=== PATIENT | male | born 1950 | race Caucasian/White ===

== ENCOUNTER 2019-07-04 07:11 | Inpatient (IN) ==
--- NOTE | 2019-06-26 12:12 | Anesthesiology Consultation ---
Date of Service June 26, 2019 Assessment & Plan (1) Encounter for pre-operative examination: Chart Review Chart Review: Pending: Refer to Additional Notes / Consult section (awaiting PAT testing) History Surgery Operation Date: 07/04/19 11:50 Proposed Procedures p Left Shoulder Tournier Resurfacing versus Hemiarthroplasty versus - Lewis Dye DO s Total Shoulder Arthroplasty - Lewis Dye DO Height/Weight Height: 5 ft 9 in Weight: 90.9 kg Allergies Allergy/AdvReac Type Severity Reaction Status Date / Time bee venom protein (honey bee) Allergy Severe yellow Verified 06/21/19 16:54 jackets-->hives tetracycline Allergy Severe severe Verified 06/21/19 16:54 vomiting & passed out Medications Home Medications Medication Instructions Recorded Confirmed Last Taken cholecalciferol (vitamin D3) 1,000 unit PO HS 06/21/19 06/21/19 Unknown [Vitamin D3] dutasteride [Avodart] 0.5 mg PO HS 06/21/19 06/21/19 Unknown fosinopril 10 mg PO HS 06/21/19 06/21/19 Unknown metformin 1,000 mg PO BID 06/21/19 06/21/19 Unknown tamsulosin [Flomax] 0.4 mg PO HS 06/21/19 06/21/19 Unknown Past Medical History Medical History BPH (benign prostatic hyperplasia) Chronic back pain uses back brace PRN Depression occasional - no medications - well controlled Diabetes mellitus, type 2 niddm GERD (gastroesophageal reflux disease) diet controlled Hypertension Hyperthyroidism no medications -- half thyroidectomy Osteoarthritis Sleep apnea cpap (noncompliant) Spinal stenosis Exercise / Class Metabolic Activity II 4-5 Yardwork/Stairs/Walk up hill Past Family History Family History Father FHx: lung cancer Brother FHx: lung cancer Past Surgical History Surgical History Fusion of spine L3-L4 History of appendectomy History of cataract surgery bilateral History of colonoscopy History of esophagogastroduodenoscopy (EGD) History of herniorrhaphy umbilical History of thyroidectomy, subtotal half r/t hyperthyroid and multiple nodules S/P right knee arthroscopy Status post uvulopalatopharyngoplasty Social History Smoking Status: Never smoker Do You Dip or Chew Tobacco: No Hx Alcohol Use: No Hx Substance Use: No substance use type: does not use Physical Exam Vital Signs Last Vital Signs Temp 97.8 F 06/26/19 12:02 Pulse 72 06/26/19 12:02 Resp 16 06/26/19 12:02 BP 123/80 06/26/19 12:02 Pulse Ox 98 06/26/19 12:02 ENMT Mouth: + dental restorations Thyromental Distance: > or= 3.5 Finger Breadths Mallampati Class: II Neck normal visual inspection Respiratory normal respiratory effort Auscultation: lungs clear to auscultation bilaterally Cardiovascular Rate/Rhythm: regular rate and regular rhythm
--- NOTE | 2019-06-26 12:58 | XRay Report ---
TWO VIEW CHEST CLINICAL HISTORY: Preoperative examination. FINDINGS: PA and lateral chest radiographs are obtained. No prior studies are available for compariso n at the time of dictation. The cardiomediastinal silhouette is unremarkable. The lungs and pleura l spaces are clear. There is no pneumothorax. The bony thorax appears intact. IMPRESSION: No active disease in the chest. Electronically signed by: Obi Enciso M.D. 06/26/2019 12:56 PM
[2019-06-26 13:37] LABS: Basophils # (auto) 0.02 K/uL (0-0.2); Basophils % (auto) 0.2 %; Eosinophils # (auto) 0.38 K/uL (0-0.5); Eosinophils % (auto) 4.1 %; Hematocrit (blood only) 44.2 % (42-52); Hemoglobin 15.1 g/dL (14.0-18.0); Immature Granulocytes # (auto) 0.02 K/uL (0.00-0.02); Immature Granulocytes % (auto) 0.2 %; Lymphocytes # (auto) 1.61 K/uL (1.2-3.4); Lymphocytes % (auto) 17.3 %; Mean Corpuscular Hemoglobin 32.3 pg (25-34); Mean Corpuscular Hgb Conc 34.2 g/dL (32-36); Mean Corpuscular Volume 94.4 fL (80-100); Monocytes # (auto) 0.78 K/uL (0.11-0.59); Monocytes % (auto) 8.4 %; Neutrophils # (auto) 6.49 K/uL (1.4-6.5); Neutrophils % (auto) 69.8 %; Platelet Count 217 K/uL (130-400); RDW Coefficient of Variation 13.4 % (11.5-14.5); RDW Standard Deviation 46.1 fL (36.4-46.3); Red Blood Count 4.68 M/uL (4.7-6.1)
[2019-06-26 13:47] LABS: INR 1.1 (0.9-1.1); Partial Thromboplastin Ratio 0.9; Partial Thromboplastin Time 25.3 Seconds (21.0-31.0); Prothrombin Time 11.6 Seconds (9.0-12.0)
[2019-06-26 13:55] LABS: Estimated Average Glucose 131 mg/dl; Hemoglobin A1C 6.2 % (4.5-5.6)
[2019-06-26 13:56] LABS: Appearance Urine Clear (Clear); Bilirubin Urine Negative (Negative); Blood Urine Negative (Negative); Color Urine Yellow; Glucose Urine UA Negative (Negative); Ketones Urine Trace (Negative); Leukocyte Esterase Urine Negative (Negative); Nitrite Urine Negative (Negative); Protein Urine Negative (Negative); Specific Gravity Urine 1.026 (1.000-1.030); Urobilinogen Urine Negative (Negative); pH Urine 5.5 (4.5-7.5)
[2019-06-26 14:02] LABS: BUN Creatinine Ratio 21.6 (10-20); Calcium 9.3 mg/dl (8.5-10.1); Creatinine Clr Calc Pharmacy 71.9 ml/min; Est GFR (African American) 80.7; Est GFR (Non-African American) 69.7; Potassium 4.1 mmol/L (3.5-5.1)
--- NOTE | 2019-06-27 18:54 | History & Physical Report ---
Date of Service June 27, 2019 date of surgery: 07-04-19 Assessment & Plan (1) Arthritis of left shoulder region: Further care discussed with patient and at this point in time has failed conservative measures and would like to proceed with a left shoulder resurfacing vs total shoulder replacement at [facility]. Plan on discharge will be home with outpatient physical therapy. DVT prophalaxis with TEDs, SCDs and will also place on aspirin 81 mg p.o. b.i.d. for a month postop. Patient will have follow up appointment in our office two weeks post op for staple removal and re- evaluation. Patient otherwise has no other questions or concerns. History of Present Illness Chief Complaint: left shoulder pain Primary Care Provider: NO PCP Mr Mendoza is a 69 year old male who complains of left shoulder pain, presents for pre-op prior to left shoulder resurfacing vs total shoulder replacement at [facility]. He presents with pain and decreased motion on the left side. He states that the symptoms have been chronic non-traumatic. Patient reports that he has been having left shoulder pain for about 2-3 years. Patient denies any known injuries. The symptoms occur constantly with intermittent worsening. Currently the patient states that the symptoms are moderate-severe. The pain is described as aching, sharp, shooting and throbbing and occur deborah nuously. The symptoms are aggravated by daily activities, driving, exercise, lifting, pulling, pushing, repetitive activities and sleeping on the affected side. In addition to left shoulder pain the patient is also experiencing decreased mobility, difficulty initiating sleep, nocturnal awakening, joint tenderness and weakness. The patient has had a previous x-ray and MRI. Prior NSAIDs include Aleve and ibuprofen. Prior pain medications include Tylenol. Allergies Allergy/AdvReac Type Severity Reaction Status Date / Time bee venom protein (honey bee) Allergy Severe yellow Verified 06/21/19 16:54 jackets-->hives tetracycline Allergy Severe severe Verified 06/21/19 16:54 vomiting & passed out Home Medications Home Medications Medication Instructions Recorded Confirmed Type cholecalciferol (vitamin D3) 1,000 unit PO HS 06/21/19 06/21/19 History [Vitamin D3] dutasteride [Avodart] 0.5 mg PO HS 06/21/19 06/21/19 History fosinopril 10 mg PO HS 06/21/19 06/21/19 History metformin 1,000 mg PO BID 06/21/19 06/21/19 History tamsulosin [Flomax] 0.4 mg PO HS 06/21/19 06/21/19 History Past Med/Surg History Medical History BPH (benign prostatic hyperplasia) Chronic back pain uses back brace PRN Depression occasional - no medications - well controlled Diabetes mellitus, type 2 niddm GERD (gastroesophageal reflux disease) diet controlled Hypertension Hyperthyroidism no medications -- half thyroidectomy Osteoarthritis Sleep apnea cpap (noncompliant) Spinal stenosis Surgical History Fusion of spine L3-L4 History of appendectomy History of cataract surgery bilateral History of colonoscopy History of esophagogastroduodenoscopy (EGD) History of herniorrhaphy umbilical History of thyroidectomy, subtotal half r/t hyperthyroid and multiple nodules S/P right knee arthroscopy Status post uvulopalatopharyngoplasty Family History Father FHx: lung cancer Brother FHx: lung cancer Social History Preferred Language: Lao Communication Ability: Effective Equine Intern Required: No Beliefs That Will Affect Care: None Current Living Situation: Spouse Other Information That Helps Us Care for You: No Feels Safe at Home: Yes Safety Concerns: Feels Safe At This Time Smoking Status: Never smoker Do You Dip or Chew Tobacco: No ; Second Hand Exposure: Yes (as a child) ; Tobacco Cessation Education Requested by Patient: No Hx Alcohol Use: No Hx Substance Use: No Review of Systems Review of Systems: All systems reviewed & are unremarkable except as noted in HPI & below Constitutional: no fever, no chills and no sweats Respiratory: no cough and no dyspnea Cardiovascular: no chest pain, no dyspnea and no orthopnea Gastrointestinal: no abdominal pain, no nausea and no vomiting Musculoskeletal: as per Subjective / HPI Physical Exam Physical Exam: Ht: 5ft 9in wt: 90.9kg BP: 122/82 Pulse: 80 Constitutional: WD/WN, vitals as above no acute distress Respiratory: normal respiratory effort, lungs clear to auscultation no respiratory distress, no labored breathing and does not use accessory muscles Cardiovascular: RRR, no murmur, no edema Gastrointestinal (Abdomen): normal bowel sounds, soft, nontender, no hepatosplenomegaly Musculoskeletal: Left Shoulder Physical Exam there is no ecchymosis or eythema noted, moderate crepitation with active motion, Tenderness anterior aspect shoulder, subacromial space and the AC joint. Belly press - Positive. Ureña Positive. Cross Body Positive. Neer's - positive. Strength tests - External rotation 4/5, Supraspinatus 4/5 no atrophy Left shoulder ROM Active ROM - Flexion: 120 degrees, Ext Rot 90 Flex: 30 degrees, Abduction: 45 degrees, Factors: pain, Description: Pain with ROM. Passive ROM - Flexion 170 degrees, ER at 90 de degrees, pain with end range passive ROM. Neurovascular- Radial pulse palpable, radial/median/ulnar nerves intact. Elbow- full painless range of motion, no tenderness. Results & Data Diagnostic Findings left shoulder x-ray showing advanced DJD glenohumeral joint showing joint space narrowing and osteophyte formation, bone on bone changes glenohumeral joint. no acute bony pathology.
[~2019-07-04 07:11] MED LIST: ACETAMINOPHEN 500 MG TAB PO SCH; CEFAZOLIN 2000MG 2,000 MG/15 ML SYR IV SCH; CeleBREX 200 MG CAP PO SCH; FAMOTIDINE 20 MG TAB PO SCH; GABAPENTIN 300 MG CAP PO SCH; LR 15ML/HR IV SCH; METOCLOPRAMIDE HCL 10 MG TABLET PO SCH; ROPIVACAINE 0.5% HCL/PF 150 MG, BUPIVACAINE 0.5% MPF 30 ML, EPINEPHrine 30MG/30ML (OR U... INSTIL SCH; TRANEXAMIC ACID 1,000 MG **IV Intra-op IV SCH; TRANEXAMIC ACID 1,000 MG **IV Pre-op IV SCH; dexAMETHasone 4 MG TAB PO SCH
[2019-07-04] MEDS ORDERED: ROPIVACAINE 0.5% 5 MG/ML 30 ML VIAL ONE (07:19)
[2019-07-04] MEDS ORDERED: MIDAZOLAM HCL 1 MG/ML 2ML VIAL ONE (08:08)
[2019-07-04] MEDS ORDERED: fentaNYL citrate 100 MCG/2 ML VIAL ONE ×2 (08:08→10:07)
--- NOTE | 2019-07-04 08:47 | History & Physical Bridge Note ---
Date of Service July 04, 2019 History & Physical Bridge Note I have examined the patient, reviewed the History & Physical and in the interval since the performance of the History & Physical I have noted the following changes of clinical significance: no changes noted
[2019-07-04] MEDS ORDERED: THROMBIN FOR SOLN 20000 UNIT KIT ONE (09:11)
[2019-07-04] MEDS ORDERED: BACITRACIN INJ 50,000 UNIT VIAL ONE (09:12)
[2019-07-04] MEDS ORDERED: ATROPINE SULFATE 0.1 MG/ML 10ML SYR IV PRN (09:24)
[2019-07-04] MEDS ORDERED: ePHEDrine sulfate 50 MG/ML AMP IV PRN (09:24)
[2019-07-04] MEDS ORDERED: LIDOCAINE HCL 2% 2 ML VIAL/AMP(20MG/ML) INFIL ONE (10:07)
[2019-07-04] MEDS ORDERED: ONDANSETRON INJ 2 MG/ML 2 ML VIAL ONE ×2 (10:07→11:23)
[2019-07-04] MEDS ORDERED: PROPOFOL IV EMULSION 10 MG/ML 20 ML VIAL IV ONE (10:07)
[2019-07-04] MEDS: HYDROmorphone INJ 1 MG/ML SYRINGE IV PRN ×4 (12:15→12:30)
--- NOTE | 2019-07-04 12:20 | Operative Report ---
Post Operative Report Pre & Post Diagnosis Operation Date: 07/04/19 09:40 Pre-Op Diagnosis: Left Shoulder Osteoarthritis Post-Op Diagnosis: Left Shoulder Osteoarthritis Procedure Operation Date: 07/04/19 09:40 Actual Procedures p Left Shoulder Tornier Resurfacing(Left) utilizing Tornier resurfacing 43 x 16 mm head and Arthrex swivel lock suture fiber tack- Lewis Dye DO Surgeon Lewis Dye DO Student Development Advisor Wilber AVINA Estimated Blood Loss 10 Findings Consistent with Post-Op Diagnosis Patient presents with DJD left lower humeral joint with marginal osteophytes on the humeral head is been no response to conservative therapy at times surgery there were marginal osteophytes around the circumference of the humeral head subchondral sclerosis and cystic changes with eburnated bone Specimens Bone and cartilage Drains Medium bore Hemovac Anesthesia Type General Regional Complications none Disposition Accompanied Patient To Recovery: No Disposition: Recovery Room Indications Patient presents with DJD left glenohumeral joint for a resurfacing hemiarthroplasty after failing attempts at conservative management physical therapy anti-inflammatories cortical steroid injections relative rest activity modification the above intraoperative findings were noted. Description of Procedure After initiation of general anesthesia of the left shoulder region was socially prepped and draped in usual fashion for his type and deltopectoral interval incision was made attention paid to protect cephalic vein vascular structures all times the cephalic vein was gently retracted lateralward with the deltoid out of harm's way anterior aspect of the subscapularis was reflected off the anterior humerus the biceps tendon was protected all times the humeral head had osteophytes involving anterior posterior and inferior which were all removed at this time the humeral head was externally rotated and delivered from the wound glenoid was inspected there was some mild fraying and damage tearing the glenoid labrum was debrided to stable margin the humeral head was sized and a 43 x 16 gave anatomic recreation of the normal humeral head socially the humeral head was reamed after placing a pin in the center of the humeral head or the reamings were irrigated the wound was irrigated the trial component was placed prior to placing the final component to trial taken through full range of motion motion gave excellent range of motion including flexion extension internal and external rotation subsequently a Arthrex fiber bridge fiber tape anchor construct was placed in the anterior humeral cortical bone into the humeral head for later fixation of the skin subscapularis tendon after thorough trialing the final component was then subsequently press-fit in the final position reduction gave excellent stability of the subscapularis tendon was repaired back to the humeral tuberosity utilizing the Arthrex fiber tape construct as well as #0 Ethibond sutures the rotator interval was closed with #1 Vicryl subcu was closed with 3-0 Vicryl skin was closed skin clips sterile compressive dressings placed sterile i mmobilizer was placed patient was taken recovery in stable condition please note KAILYN Menodza was necessary for prepping draping retraction wound closure of the fascia subcu and skin was necessary for the case I attest to the content of the Intraoperative Record and any orders documented therein. Any exceptions are noted below.
--- NOTE | 2019-07-04 12:28 | XRay Report ---
XR shoulder LT min 2V routine CLINICAL HISTORY: Post shoulder surgery COMPARISON: None. DISCUSSION: There are postsurgical changes of a left humeral resurfacing arthroplasty. No fractures o r dislocations are visualized. The heart is enlarged. Left hemidiaphragm is obscured. This suggests a left pleural effusion and/or left lower lobe atelectasis/consolidation IMPRESSION: 1. Postsurgical changes involving the left shoulder. No evidence of dislocation 2. Cardiomegaly. Left pleural effusion and/or left lower lobe atelectasis/consolidation. Electronically signed by: Micheal Guillen M.D. 07/04/2019 12:26 PM
[2019-07-04] MEDS ORDERED: BISACODYL 10 MG SUPP PR PRN (13:17)
[2019-07-04] MEDS ORDERED: MAGNESIUM HYDROXIDE SUSP 30 ML UDC PO PRN (13:17)
[2019-07-04] MEDS ORDERED: ONDANSETRON INJ 2 MG/ML 2 ML VIAL IV PRN (13:17)
[2019-07-04] MEDS ORDERED: HYDROmorphone INJ 1 MG/ML SYRINGE IV PRN (13:17)
[2019-07-04] MEDS ORDERED: METOCLOPRAMIDE HCL INJ 5 MG/ML 2 ML VIAL IV PRN (13:17)
[2019-07-04] MEDS ORDERED: NALOXONE HCL 0.4 MG/1 ML VIAL/CARP IV PRN (13:17)
--- NOTE | 2019-07-04 13:33 | Anesthesiology Progress Note ---
Date of Service July 04, 2019 Anesthesia Post Procedure Vital Signs Vital Signs: Temp Pulse Pulse Resp BP BP Pulse Ox 07/04/19 13:00 36.6 C 65 13 143/92 H 97 07/04/19 12:51 67 16 143/91 H 97 07/04/19 12:40 68 13 146/91 H 97 07/04/19 12:30 72 13 144/103 H 98 07/04/19 12:20 71 12 160/102 H 97 07/04/19 12:10 75 13 139/79 98 07/04/19 12:00 73 14 154/101 H 98 07/04/19 11:53 36.7 C 78 12 146/96 H 94 07/04/19 07:55 37.0 C 63 18 147/88 H 98 Pain Intensity Left Shoulder: Pain Intensity: 6 Transfer of Care Handoff Completed per policy Notes Mental Status: alert / awake / arousable Patient Amnestic to Procedure: Yes Nausea / Vomiting: adequately controlled Pain: adequately controlled Airway Patency, RR, SpO2: stable & adequate BP & HR: stable & adequate Hydration State: stable & adequate Anesthetic Complications: no major complications apparent and Pt Satisfied with anesthetic care
[2019-07-04] MEDS ORDERED: PHARMACY GLYCEMIC MGMT CONSULT PRN (13:40)
[2019-07-04] MEDS ORDERED: CARBOHYDRATES FOR HYPOGLYCEMIA PO PRN (14:00)
[2019-07-04] MEDS ORDERED: DEXTROSE 50% 50 ML SYRINGE IV PRN (14:00)
[2019-07-04] MEDS ORDERED: GLUCAGON FOR INJ 1 MG VIAL IM PRN (14:00)
[2019-07-04] MEDS ORDERED: GLUCOSE 40% GEL 15 GM TUBE PO PRN (14:00)
[2019-07-04] MEDS ORDERED: GLUCOSE 10 TABS/TUBE PO PRN (14:00)
[2019-07-04] MEDS ORDERED: NovoLIN-N (NPH) PER UNIT CHARGE SQ ONE (14:00)
[2019-07-04] MEDS: SODIUM CHLORIDE 0.9% 1000ML 1,000 ML IV SCH (14:14)
--- NOTE | 2019-07-04 14:15 | Pharmacy Report ---
Glycemic Control Consultation - Date of Service July 04, 2019 - Scope Scope: Glycemic Pharmacist consulted by Wilber Pruitt on 07/04 for glycemic control and to write orders per [facility] inpatient glycemic control protocol - Objective Weight: 91 kg Accuchecks BSG (last 24hrs): 07/04/19 07/04/19 07/04/19 07:42 11:56 13:48 POC Glucose 116 H 123 H 181 H HbA1c: Hemoglobin A1c 6.2 % (4.5-5.6) H 06/26/19 12:20 - Recent Pertinent Medications Outpatient Anti-diabetic Regimen: * metformin 1 gm bid * A1c = 6.2% [06/26/19] Risk Factors for Insulin Resistance: * Steroids: DXM 8 mg po x 1 * Recent Surgery: POD 0 * Diet: T2DM - Assessment & Plan Assessment & Plan: ASSESSMENT: * Patient is s/p L shoulder resurfacing. Type 2 diabetic managed only on metformin at home. Most recent A1C ~6.2% * PMHx significant for GERD, osteoarthritis, BPH, hyperthyroidism * Patient did receive dexamethasone PO x 1 this morning - anticipate steroid induced hyperglycemia therefore will utilize basal/bolus insulin postop PLAN FOR INPATIENT GLYCEMIC CONTROL: * Pt is maintained on oral antidiabetic agents as an outpatient * Oral agents are not recommended for inpatient use d/t drug interactions, changing PO intake, and difficulty titrating for acute hyper/hypoglycemia. ADA recommends re-initiating outpatient oral agents 1-2 days prior to discharge if/when appropriate if they were held on admission. * Will hold oral agents for admission and utilize SQ basal bolus insulin regimen which is the recommended regimen for inpatient glycemic control. * Will initiate weight based insulin dosing for insulin estevan patient and titrate based on BSG trends. * Basal insulin * NPH 20 units x 1 for now (~0.2 units/kg) - to help cover steroids * Bolus insulin * NovoLog per scale ACHS or Q6hrs while NPO * Goal Range: Low 110 mg/dL - High 140 mg/dL * Correction Factor: 25 mg/dL/unit * Nutritional / Prandial insulin per carb ratio of 1 unit per 9 grams CHO consumed * Please note that the plan above was derived based on current level of insulin resistance and hospital stress. These recommendations are appropriate for inpatient admission only. Plan of care upon discharge will need to be reassessed to avoid potential outpatient hypo/hyperglycemia. Thank you.
[2019-07-04] MEDS: ACETAMINOPHEN 500 MG TAB PO SCH ×2 (14:24→22:23)
[2019-07-04] MEDS: KETOROLAC TROMETHAMINE 15 MG/ML VIAL IV SCH ×2 (14:24→20:14)
[2019-07-04] MEDS: INSULIN ASPART 100 UNITS/ML 3 ML PEN SC SCH ×3 (14:28→20:59)
[2019-07-04] MEDS: ASPIRIN 81 MG ECTAB PO SCH (20:15)
[2019-07-04] MEDS: DOCUSATE SODIUM 100 MG CAP PO SCH (20:16)
[2019-07-04] MEDS: CEFAZOLIN 2000MG 2,000 MG/15 ML SYR IV SCH (20:24)
[2019-07-04] MEDS ORDERED: TAMSULOSIN HCL 0.4 MG CAP PO SCH (21:00)
[2019-07-04] MEDS ORDERED: SENNA 8.6 MG TAB PO SCH (21:00)
[2019-07-04] MEDS ORDERED: CHOLECALCIFEROL 1,000 UNITS TAB PO SCH (21:00)
[2019-07-04] MEDS ORDERED: LISINOPRIL 10 MG TAB PO SCH (21:00)
[2019-07-05] MEDS: INSULIN ASPART 100 UNITS/ML 3 ML PEN SC SCH ×4 (00:11→12:54)
[2019-07-05] MEDS: SODIUM CHLORIDE 0.9% 1000ML 1,000 ML IV SCH (00:12)
[2019-07-05] MEDS: KETOROLAC TROMETHAMINE 15 MG/ML VIAL IV SCH ×2 (02:19→08:10)
[2019-07-05] MEDS: CEFAZOLIN 2000MG 2,000 MG/15 ML SYR IV SCH (02:20)
[2019-07-05] MEDS: OXYCODONE HCL IR 5 MG TAB (IMMEDIATE RELEASE) PO PRN ×3 (02:53→13:00)
[2019-07-05] MEDS: ACETAMINOPHEN 500 MG TAB PO SCH ×2 (05:10→12:52)
[2019-07-05 06:22] LABS: Basophils # (auto) 0.01 K/uL (0-0.2); Basophils % (auto) 0.1 %; Eosinophils % (auto) 0.8 %; Hematocrit (blood only) 37.5 % (42-52); Hemoglobin 12.7 g/dL (14.0-18.0); Immature Granulocytes # (auto) 0.02 K/uL (0.00-0.02); Immature Granulocytes % (auto) 0.2 %; Lymphocytes # (auto) 1.47 K/uL (1.2-3.4); Lymphocytes % (auto) 12.3 %; Mean Corpuscular Hemoglobin 31.7 pg (25-34); Mean Corpuscular Hgb Conc 33.9 g/dL (32-36); Mean Corpuscular Volume 93.5 fL (80-100); Mean Platelet Volume 8.5 fL (7.4-10.4); Monocytes # (auto) 1.15 K/uL (0.11-0.59); Monocytes % (auto) 9.6 %; Neutrophils # (auto) 9.25 K/uL (1.4-6.5); Platelet Count 198 K/uL (130-400); RDW Coefficient of Variation 13.2 % (11.5-14.5); RDW Standard Deviation 45.4 fL (36.4-46.3); Red Blood Count 4.01 M/uL (4.7-6.1)
[2019-07-05 06:55] LABS: Calcium 8.3 mg/dl (8.5-10.1); Creatinine Clr Calc Pharmacy 72.6 ml/min; Est GFR (African American) 81.7; Est GFR (Non-African American) 70.5; Potassium 3.9 mmol/L (3.5-5.1)
[2019-07-05] MEDS: ASPIRIN 81 MG ECTAB PO SCH (08:32)
[2019-07-05] MEDS: DOCUSATE SODIUM 100 MG CAP PO SCH (08:32)
[2019-07-05] MEDS ORDERED: MULTIVITAMIN TAB PO SCH (09:00)
--- NOTE | 2019-07-05 09:00 | Orthopedic Progress Note ---
Date of Service July 05, 2019 Assessment & Plan (1) Arthritis of left shoulder region: POD #1 left shoulder resurfacing PT/OT Pain management DVT prophylaxisSCDs, aspirin 81 mg twice daily x1 month Discharge planningplans on outpatient therapy upon discharge, likely later today as long as PT goes well. Subjective Patient is POD#1 left shoulder resurfacing. His pain is controlled this AM, block has worn off. He plans on discharge home with plans on outpatient PT. Denies complaints this morning. Review of Systems Review of Systems: All systems reviewed & are unremarkable except as noted in HPI & below Physical Exam Physical Exam: Patient is seen in bedside chair. Sling is in place. Dressing is clean dry and intact. Fingers are mobile, good manager web strength, distally neurovascularly intact. Results & Data Vital Signs (Past 12 Hours) Vital Signs Temp Pulse Resp BP Pulse Ox 07/05/19 07:34 36.6 C 54 L 18 106/70 97 07/05/19 02:46 36.6 C 61 16 115/73 97 07/04/19 23:54 36.6 C 72 16 102/63 97
--- NOTE | 2019-07-05 09:48 | Anesthesiology Progress Note ---
Date of Service July 05, 2019 Anesthesia Post Procedure Vital Signs Vital Signs: Temp Pulse Pulse Resp BP Pulse Ox 07/05/19 07:34 36.6 C 54 L 18 106/70 97 07/05/19 02:46 36.6 C 61 16 115/73 97 07/04/19 23:54 36.6 C 72 16 102/63 97 07/04/19 19:44 36.5 C 77 16 123/74 97 07/04/19 16:01 36.3 C L 67 16 121/75 99 07/04/19 15:10 36.3 C L 71 16 121/78 99 07/04/19 14:08 63 18 129/82 98 07/04/19 13:40 64 18 146/88 H 98 07/04/19 13:10 36.5 C 69 18 143/87 H 98 07/04/19 13:00 36.6 C 65 13 143/92 H 97 07/04/19 12:51 67 16 143/91 H 97 07/04/19 12:40 68 13 146/91 H 97 07/04/19 12:30 72 13 144/103 H 98 07/04/19 12:20 71 12 160/102 H 97 07/04/19 12:10 75 13 139/79 98 07/04/19 12:00 73 14 154/101 H 98 07/04/19 11:53 36.7 C 78 12 146/96 H 94 Notes Mental Status: alert / awake / arousable and participated in evaluation Nausea / Vomiting: adequately controlled Pain: adequately controlled Airway Patency, RR, SpO2: stable & adequate BP & HR: stable & adequate Hydration State: stable & adequate Neuraxial Anesthesia: sensory block resolved
[2019-07-05] MEDS ORDERED: CeleBREX 200 MG CAP PO SCH (12:00)
--- NOTE | 2019-07-05 19:47 | Discharge Summary ---
Date of Service date of discharge: July 05, 2019 date of admission: 07-04-19 Admission HPI Per Admitting Provider Mr Mendoza is a 69 year old male who complains of left shoulder pain, presents for pre-op prior to left shoulder resurfacing vs total shoulder replacement at [facility]. He presents with pain and decreased motion on the left side. He states that the symptoms have been chronic non-traumatic. Patient reports that he has been having left shoulder pain for about 2-3 years. Patient denies any known injuries. The symptoms occur constantly with intermittent worsening. Currently the patient states that the symptoms are moderate-severe. The pain is described as aching, sharp, shooting and throbbing and occur continuously. The symptoms are aggravated by daily activities, driving, exercise, lifting, pulling, pushing, repetitive activities and sleeping on the affected side. In addition to left shoulder pain the patient is also experiencing decreased mobility, difficulty initiating sleep, nocturnal awakening, joint tenderness and weakness. The patient has had a previous x-ray and MRI. Prior NSAIDs include Aleve and ibuprofen. Prior pain medications include Tylenol. Principal Diagnosis left shoulder osteoarthritis Discharge Exam Vital Signs Temp Pulse Resp BP Pulse Ox 07/05/19 10:32 36.6 C 54 L 18 106/70 97 07/05/19 07:34 36.6 C 54 L 18 106/70 97 07/05/19 02:46 36.6 C 61 16 115/73 97 07/04/19 23:54 36.6 C 72 16 102/63 97 Intake and Output 07/05/19 07/05/19 07/05/19 06:59 14:59 22:59 Intake Total 975 / 3395 Balance 975 / 2835 Intake: IV 975 / 2195 Nss 1000ML 1,000 ml @ 100 mls/ 975 / 975 hr IV .Q10H MITCHELL Rx#:[id number] Other: # Unmeasured Voids 1 Weight 91 kg Patient Weight 07/06/19 06:59 Weight 91 kg Constitutional WD/WN, vitals as above no acute distress left shoulder: NVDI, incision clean dry and intact. no erythema or drainage. Discharge Data Allergies Allergy/AdvReac Type Severity Reaction Status Date / Time bee venom protein (honey bee) Allergy Severe yellow Verified 07/04/19 07:52 jackets-->hives tetracycline Allergy Severe severe Verified 07/04/19 07:52 vomiting & passed out Consultations 07/04/19 13:17 Consult Case Management - Discharge Planning Routine Procedures Performed Operation Date: 07/04/19 09:40 Actual Procedures p Left Shoulder Tornier Resurfacing(Left) - Lewis Dye DO Ordered Studies 07/04/19 05:00 US - OR guided needle placemen Routine 07/04/19 09:24 US - OR guided needle placemen Routine Hospital Course (1) Arthritis of left shoulder region: POD #1 left shoulder resurfacing PT/OT Pain management DVT prophylaxisSCDs, aspirin 81 mg twice daily x1 month Discharge planningplans on outpatient therapy upon discharge, likely later today as long as PT goes well. Total Time Total Time Spent Total Time Spent (In Minutes): 20 Total Time Includes: Examination of the Patient, Discharge Planning and Medication Reconciliation Discharge Plan Discharge Items Patient Disposition: Home - Self-Care Reason For Visit: Left Shoulder Osteoarthritis Discharge Diagnosis: left shoulder resurfacing Activity: Per Instructions section Non-emergency contact: Surgeon Call non-emergency contact if: you have any medication questions, your pain is not controlled, your pain is unusual for you, your pain is concerning for you, you have a fever, your temperature is above 101, your wound has increased redness and your wound has increased drainage Follow-up/Referrals: Kalin Ortiz M.D. [Primary Care Provider] - Diet: Regular Addtl Attending Provider Instructions: ACTIVITY RECOMMENDATIONS: SELF CARE INSTRUCTIONS AFTER SHOULDER RESURFACING A. You may do daily exercises as taught in physical therapy while in hospital. No lifting with the operative arm. Please schedule your outpatient physical therapy appointment to begin within 2-3 days after leaving the hospital. Specific restrictions will be written on your physical therapy prescription that is provided to you. B. You are to wear your sling/immobilizer at all times EXCEPT when performing your daily exercises, participating in physical therapy and for hygiene purposes. C. You may perform dry, daily dressing changes. Please keep your incision covered. You may shower 48 hours after surgery. Do not apply soap or any ointment/lotions directly over incision. Do not soak incision in bath tub/swimming pool. D. You may use ice as needed to operative shoulder. SPECIAL CARE INSTRUCTIONS: MEDICATION INSTRUCTIONS: *It is recommended you take Aspirin 325mg daily for four weeks post-op. VERY IMPORTANT TO READ AND REVIEW A. There are a few signs you need to watch for after you are home. Call [facility] at [phone] if you experience any of the followin. Increased severe shoulder pain. Some pain is expected especially when you exercise. 2. Increased swelling in you shoulder or arm; pain or swelling in either upper extremity. 3. Any fluid drainage from the incision. 4. Shortness of breath or chest pain. B. Please call [facility] at [phone] if you have any questions or concerns about your operation or recovery. C. Call your physician if: 1. Temperature is greater than 101 degrees (F). 2. Pain is not relieved by prescribed pain medications. 3. Increase drainage or redness from incision. 4. Unanswered questions or concerns. You may restart your Metformin 48 hours post operatively FOLLOW UP VISIT: Please call [facility] at [phone] to schedule a follow up appointment with Dr. Dye or his PA in 12-14 days from your surgery date. Pending Studies at Discharge: No Stand-Alone Forms: [facility], Opioid Pain Management Medications and DC Order Prescriptions: New aspirin [Aspirin Low Dose] 81 mg tablet,delayed release (DR/EC) 81 mg PO DAILY Qty: 60 RF: 0 oxycodone 5 mg tablet 5 - 10 mg PO Q6H MDD 6 PRN (Reason: pain) Qty: 30 RF: 0 Continued fosinopril 10 mg Tablet 10 mg PO HS RF: 0 tamsulosin [Flomax] 0.4 mg Capsule 0.4 mg PO HS RF: 0 dutasteride [Avodart] 0.5 mg Capsule 0.5 mg PO HS RF: 0 cholecalciferol (vitamin D3) [Vitamin D3] 1,000 unit (25 mcg) Tablet 1,000 unit PO HS RF: 0 Discontinued metformin 500 mg Tablet 1,000 mg PO BID RF: 0 Discharge Orders: Discharge Order (Routine); Ordered 07/05/19 Ordered By: Peterson Kiser/Other Patient Handouts: Surgery Prevent DVT After Admission Data Admit Date/Time: 07/04/19 11:58 Attending Provider: Lewis Dye Admit Provider: Lewis Dye Primary Care Provider: Kalin Ortiz Other Interventions: Discharge Summary Assessment (RN) Last Done: 07/05/19 10:32 DC Date/Time DO NOT enter until pt leaves facility: 07/05/19 14:49
== END 2019-07-05 14:49 | disposition home or self-care (01) | DRG 508 ==
LOC: ASU 07:11 → 3E 11:58